=== PATIENT | female | born 1950 | race Caucasian/White ===

== ENCOUNTER 2016-06-07 11:57 | Emergency (ER) | payer OTHER ==
[~2016-06-07] VITALS: Wt 85.0 kg
[~2016-06-07 11:57] MED LIST: BENA40TA41 PO; CALC-524 PO; DOCU-159 PO; HYDROCODONE; PRAV40TA76 PO; RANI300C7 PO; SYN75 PO; TRAM100T2 PO; [UNRECOGNIZED DRUG - OTHER]
[2016-06-07] MEDS ORDERED: KETOROLAC 30 MG INJ IM STA (13:06)
[2016-06-07] MEDS ORDERED: ACYC800T57 PO (13:17)
[2016-06-07] MEDS ORDERED: HYDR-906 PO (13:18)
[2016-06-07] MEDS ORDERED: IBUP-1542 PO (13:19)
[2016-06-07] MEDS ORDERED: DEXAMETHASONE 10 MG/ML 1 ML INJ IM ONE (13:30)
--- NOTE | 2016-06-07 14:08 | ERD ---
ER Documentation Chief Complaint Date/Time DATE: 06/07/16 TIME: 14:00 Chief Complaint R LEG PAIN RADIATING TO BACK X 1 WEEK HPI This patient is a 65-year-old female with history of lumbar disc problems, hypertension, hypothyroidism, sciatica presenting to the emergency department for rash to the right leg which began yesterday. She reports a burning, tingling sensation associated with the rash. This was made worse when she was putting on and removing her underwear. Additionally the patient has had right- sided low back pain with radiation down her right leg for the past week. She states the pain starts in the tailbone and radiates distally. She has been taking ibuprofen and naproxen with mild relief of symptoms. The patient denies recent travel, shortness of breath, fevers, chills, loss of bowel or bladder function, or other injuries. The patient does have a history of chickenpox when she was an adolescent. ROS All systems reviewed and are negative except as per history of present illness. Medications Home Meds Active Scripts Ibuprofen* (Motrin*) 600 Mg Tab, 600 MG PO Q6, #30 TAB Prov:LILLI REESE PA-C 06/07/16 Hydrocodone/Acetaminophen (Flint 5-325 Tablet) 1 Each Tablet, 1 TAB PO Q6H Y for PAIN, #15 TAB Prov:LILLI REESE PA-C 06/07/16 Acyclovir* (Zovirax*) 800 Mg Tablet, 800 MG PO 5 TIMES DAILY for 7 Days, #35 TAB Prov:LILLI REESE PA-C 06/07/16 Reported Medications [Neproxen] No Conflict Check, 500 MG DAILY 01/26/13 Tramadol Hcl* (Tramadol* ER) 100 Mg Tab.er.24h, 50 MG PO DAILY 01/26/13 [Hydrocodone] No Conflict Check, 10 - 325 MG Y 01/26/13 Docusate Sodium* (Docusate Sodium*) 100 Mg Capsule, 100 MG PO DAILY 01/26/13 Ranitidine Hcl (Ranitidine Hcl) 300 Mg Capsule, 300 MG PO DAILY 01/26/13 Levothyroxine Sodium* (Synthroid*) 75 Mcg Tablet, 75 MCG PO DAILY 11/09/12 Pravastatin Sodium* (Pravastatin Sodium*) 40 Mg Tablet, 40 MG PO HS 11/09/12 Calcium Carbonate/Vitamin D2 (Oyster Calcium 500 Mg +D Tab) 1 Tab Tablet, 1 TAB PO 11/25/11 Benazepril Hcl* (Benazepril Hcl*) 40 Mg Tablet, 40 MG PO DAILY 11/25/11 Allergies Allergies: Coded Allergies: No Known Allergies (Verified Allergy, 01/26/13) PMhx/Soc Anesthesia Reaction: No Hx Neurological Disorder: No Hx Respiratory Disorders: No Hx Cardiac Disorders: Yes (HTN) Hx Psychiatric Problems: No Hx Miscellaneous Medical Probl: No Hx Alcohol Use: No Hx Substance Use: No Hx Tobacco Use: No FmHx Noncontributory for chief complaint Physical Exam Vitals Vital Signs Date Time Temp Pulse Resp B/P Pulse Ox O2 Delivery O2 Flow Rate FiO2 06/07/16 11:59 98.0 75 18 132/71 99 Physical Exam Const: The patient is resting comfortably in no acute distress. Head: Atraumatic Eyes: Normal Conjunctiva ENT: Normal External Ears, Nose and Mouth. Neck: Full range of motion..~ No meningismus. Resp: Clear to auscultation bilaterally Cardio: Regular rate and rhythm, no murmurs Abd: Soft, non tender, non distended. Normal bowel sounds Skin: The patient has a vesicular localized rash to the right lower extremity which seems to follow a dermatomal pattern. There is no purulent discharge, significant warmth, or edema to the extremity. Back: There is tenderness to palpation of the paraspinal muscles of the lumbar spine on the right side. There is positive straight leg raise test on the right. Ext: No cyanosis, or edema Neur: Awake and alert Psych: Normal Mood and Affect Results 24 hrs Current Medications Medications (Trade) Dose Ordered Sig/Wilbur Route PRN Reason Start Time Stop Time Status Last Admin Dose Admin Ketorolac Tromethamine (Toradol) 30 mg ONCE STAT IM 06/07/16 13:06 06/07/16 13:07 DC 06/07/16 13:14 Dexamethasone (Decadron) 8 mg ONCE ONCE IM 06/07/16 13:30 06/07/16 13:31 DC 06/07/16 13:14 Procedures/MDM 65-year-old female presents secondary to complaints of rash to her right lower extremity as well as sciatica pain localized to the right lower extremity. On physical examination the patient's vitals are within normal limits. The patient is afebrile. Examination of the back reveals examination consistent with sciatica on the right side. Examination of the skin shows vesicular rash to the right lower extremity consistent with possible herpes zoster dermatitis. I believe the patient is suitable for outpatient management with prescriptions for acyclovir, Flint, and ibuprofen. The patient was treated in the department for sciatica with IM Decadron and IM Toradol. The patient was feeling improved on reevaluation. I have low suspicion for cellulitis, disseminated herpes zoster infection, septicemia, cauda equina, epidural abscess , vertebral body fracture, or other emergent conditions. The patient agrees with the discharge plan and diagnosis. Strict ER return precautions were given. The patient was advised to follow-up with primary care physician within 1-3 days. Departure Diagnosis: Primary Impression: Rash and other nonspecific skin eruption Additional Impressions: Low back pain Chronicity: chronic Back pain laterality: right Sciatica presence: with sciatica Sciatica laterality: sciatica of right side Qualified Code: M54.41 - Chronic right-sided low back pain with right-sided sciatica Sciatica Laterality: right Qualified Code: M54.31 - Sciatica of right side Shingles rash Herpes zoster complications: without complications Qualified Code: B02.9 - Herpes zoster without complication Condition: Fair Patient Instructions: Self-Care for Skin Rashes, Shingles (Herpes Zoster), Back Pain W/ Sciatica Referrals: [facility] YOU HAVE RECEIVED A MEDICAL SCREENING EXAM AND THE RESULTS INDICATE THAT YOU DO NOT HAVE A CONDITION THAT REQUIRES URGENT TREATMENT IN THE EMERGENCY DEPARTMENT. FURTHER EVALUATION AND TREATMENT OF YOUR CONDITION CAN WAIT UNTIL YOU ARE SEEN IN YOUR DOCTORS OFFICE WITHIN THE NEXT 1-2 DAYS. IT IS YOUR RESPONSIBILITY TO MAKE AN APPOINTMENT FOR FOL-UP CARE. IF YOU HAVE A PRIMARY DOCTOR --you should call your primary doctor and schedule an appointment IF YOU DO NOT HAVE A PRIMARY DOCTOR YOU CAN CALL OUR PHYSICIAN REFERRAL HOTLINE AT IF YOU CAN NOT AFFORD TO SEE A PHYSICIAN YOU CAN CHOSE FROM THE FOLLOWING [facility] [address] [facility] [address] [facility]. [facility] [address] [facility] [address] [facility]. [facility] [address] [facility] [facility] [address] Additional Instructions: Follow up with your PCP within the next 1-3 days for a more thorough evaluation and a possible referral to a specialist. Return the the emergency department immediately if symptoms worsen or change. If you have any questions regarding medications, ask your pharmacist or us before you leave. If any adverse reactions, occur while taking your medications, discontinue the treatment and return to the emergency department immediately. If any new or worsening symptoms, uncontrolled fevers, or other unexplained symptoms occur, return to the emergency department immediately. Take your medications as directed, and complete the entire course of treatment. LILLI REESE PA-C Jun 07, 2016 14:08
== END 2016-06-07 14:47 | disposition home or self-care (01) ==
LOC: FTE 11:57
DX: R21 Rash and other nonspecific skin eruption (principal); M54.41 Lumbago with sciatica, right side; B02.9 Zoster without complications; I10 Essential (primary) hypertension
CPT/HCPCS: 96372; J1100; J1885; Z7502

== ENCOUNTER 2016-07-28 11:11 | Emergency (ER) | payer OTHER ==
[~2016-07-28] VITALS: Ht 167.6 cm; Wt 85.5 kg
[~2016-07-28 11:11] MED LIST changes: +ACYC800T57 PO; +HYDR-906 PO; +IBUP-1542 PO
[2016-07-28 11:15] VITALS: Ht 167.6 cm; Wt 85.5 kg
[2016-07-28] MEDS ORDERED: PRED20TA PO (11:38)
[2016-07-28] MEDS ORDERED: CETI10CA PO (11:38)
--- NOTE | 2016-07-28 11:47 | ERD ---
ER Documentation Chief Complaint Date/Time DATE: 07/28/16 TIME: 11:40 Chief Complaint Complains of rash around the face HPI Patient is a 65-year-old female with history of lumbar disc problems, hypertension, hypothyroidism, sciatica, shingles who presents to the emergency department for concerns of a rash to her face. Patient states the rash started 3 days ago. Patient describes a rash to be "tiny pimples" around her cheeks and perioral region. Patient states a day before the rash appeared, she used a blackhead facial cream/ remover. Patient describes a rash to be mildly itchy in nature. Patient denies any pain. Patient denies any fevers, chills, nausea , vomiting, chest pain, shortness breath or LOC. She denies any lip swelling, tongue swelling or throat closure sensation. Patient denies any new environments, pets, medications or foods. Macanese speaking nurse was used for translation. ROS All systems reviewed and are negative except as per history of present illness. Medications Home Meds Active Scripts Cetirizine Hcl* (Zyrtec*) 10 Mg Capsule, 10 MG PO DAILY, #10 TAB.CHEW Prov:BASIL LINDO PA-C 07/28/16 Prednisone* (Prednisone*) 20 Mg Tab, 40 MG PO DAILY for 4 Days, TAB Prov:BASIL LINDO PA-C 07/28/16 Ibuprofen* (Motrin*) 600 Mg Tab, 600 MG PO Q6, #30 TAB Prov:LILLI REESE PA-C 06/07/16 Hydrocodone/Acetaminophen ([place] 5-325 Tablet) 1 Each Tablet, 1 TAB PO Q6H Y for PAIN, #15 TAB Prov:LILLI REESE PA-C 06/07/16 Acyclovir* (Zovirax*) 800 Mg Tablet, 800 MG PO 5 TIMES DAILY for 7 Days, #35 TAB Prov:LILLI REESE PA-C 06/07/16 Reported Medications [Neproxen] No Conflict Check, 500 MG DAILY 01/26/13 Tramadol Hcl* (Tramadol* ER) 100 Mg Tab.er.24h, 50 MG PO DAILY 01/26/13 [Hydrocodone] No Conflict Check, 10 - 325 MG Y 01/26/13 Docusate Sodium* (Docusate Sodium*) 100 Mg Capsule, 100 MG PO DAILY 01/26/13 Ranitidine Hcl (Ranitidine Hcl) 300 Mg Capsule, 300 MG PO DAILY 01/26/13 Levothyroxine Sodium* (Synthroid*) 75 Mcg Tablet, 75 MCG PO DAILY 11/09/12 Pravastatin Sodium* (Pravastatin Sodium*) 40 Mg Tablet, 40 MG PO HS 11/09/12 Calcium Carbonate/Vitamin D2 (Oyster Calcium 500 Mg +D Tab) 1 Tab Tablet, 1 TAB PO 11/25/11 Benazepril Hcl* (Benazepril Hcl*) 40 Mg Tablet, 40 MG PO DAILY 11/25/11 Allergies Allergies: Coded Allergies: No Known Allergies (Verified Allergy, Unknown, 07/28/16) PMhx/Soc Anesthesia Reaction: No Hx Neurological Disorder: No Hx Respiratory Disorders: No Hx Cardiac Disorders: Yes (HTN; cholesterol) Hx Psychiatric Problems: No Hx Miscellaneous Medical Probl: No Hx Alcohol Use: No Hx Substance Use: No Hx Tobacco Use: No Smoking Status: Never smoker FmHx Family History: No diabetes Physical Exam Vitals Vital Signs Date Time Temp Pulse Resp B/P Pulse Ox O2 Delivery O2 Flow Rate FiO2 07/28/16 11:15 97.8 76 20 146/65 96 Physical Exam GENERAL: Well-developed, well-nourished female. Appears in no acute distress. Speaking in full sentences. HEAD: Normocephalic, atraumatic. EYES: Pupils are equally reactive bilaterally. EOMs grossly intact. No conjunctival erythema. ENT: No lesions noted in the patient's auditory canals. Bilateral TMs appear nonerythematous, nonbulging. Moist mucous membranes. No uvula deviation. No kissing tonsils. No lip swelling. No tongue swelling. No throat swelling. Unable to tolerate secretions without any difficulty. NECK: Supple. No meningismus. Normal range of motion of the neck. LUNG: Clear to auscultation bilaterally. No rhonchi, wheezing, rales or coarse breath sounds. HEART: Regular rate and rhythm. No murmurs, rubs or gallops. ABDOMEN: No scars, ecchymosis or rashes noted. Soft, nontender, and nondistended. Positive bowel sounds in all four quadrants. No rebound tenderness , no guarding. (-) McBurney's point tenderness. No CVA tenderness. BACK: No midline tenderness. EXTREMITIES: Equal pulses bilaterally. No peripheral clubbing, cyanosis or edema. No unilateral leg swelling. NEUROLOGIC: Alert and oriented. Moving all four extremities without any difficulty. Normal speech. Steady gait. SKIN: Normal color. Warm and dry. Pinpoint raised, erythematous, pustular head lesions noted throughout the patient's bilateral cheeks, perioral region and chin. No scabbing noted. Procedures/MDM MEDICAL DECISION MAKING: This is a 65-year-old female who presents with concerns of a rash to her bilateral cheeks, perioral region and chin 3 days. Patient did report using a blackhead cream/facial product prior to the onset of her symptoms. Vital signs were reviewed. Patient was afebrile. Patient is not diabetic. Given these findings, the patient's presentation is most consistent with irritant contact dermatitis. I have a much lower clinical concern for necrotizing fasciitis, sepsis, gangrene, Bhavin-Alexandre syndrome, abscess, cellulitis, herpes zoster, viral exanthem, anaphylaxis, fungal infection, insect bite, impetigo. She was advised to refrain from using any additional creams or lotions at this time. Patient was advised to use cool compresses. PRESCRIPTIONS: Prednisone Zyrtec DISCHARGE: At this time, patient is stable for discharge and outpatient management. I have advised the patient to avoid any new products, creams or possible allergens. I have advised the patient to avoid scratching the lesions. I have instructed the patient to follow-up with his/her primary care physician in 1-2 days. If symptoms persist, patient may need to see a rn private duty for further examinations and testing. For all information provided. I have instructed the patient to promptly return to the ER at any time for any new or worsening symptoms including increased pain, fever, redness, swelling, warmth, difficulty breathing or vomiting. The patient and/or family expressed understanding of and agreement with this plan. All questions were answered. Home care instructions were provided. Patient's blood pressure was elevated (>120/80) but appears stable without evidence of hypertensive emergency, hypertensive urgency or end-organ failure. I had discussion with the patient about the risks of hypertension. I have advised the patient to follow up with his/her primary care physician for outpatient monitoring and treatment for hypertension in 2-3 days. I have instructed the patient to return to the ER for any new or worsening symptoms including chest pain, shortness of breath, headache, blurred vision, confusion, nausea, vomiting or LOC. Departure Diagnosis: Primary Impression: Rash Condition: Stable Patient Instructions: Self-Care for Skin Rashes Referrals: NICOLE QUICK (PCP) Additional Instructions: Call your primary care doctor TOMORROW for an appointment during the next 1-2 days.See the doctor sooner or return here if your condition worsens before your appointment time. Follow up with rn private duty if rash persists. See referral information. BASIL LINDO PA-C Jul 28, 2016 11:47
== END 2016-07-28 12:07 | disposition home or self-care (01) ==
LOC: FTE 11:11
DX: R21 Rash and other nonspecific skin eruption (principal); I10 Essential (primary) hypertension
CPT/HCPCS: 99283